=== PATIENT | female | born 1940 | race Caucasian/White ===

== ENCOUNTER 2018-02-17 17:41 | Observation (INO) | payer MEDICARE ==
--- NOTE | 2018-02-17 18:18 | RAD ---
CHEST ONE VIEW 02/17/18 HISTORY: Chest pain. COMPARISON: None. FINDINGS: Exam is limited due to leftward patient rotation. Left peripheral air space opacity as well as small left effusion. No acute osseous abnormality. Mild S-shaped scoliosis of the thoracolumbar spine. Right upper quadrant surgical clips. IMPRESSION: Limited due to leftward rotation although there is appearance of a small left effusion as well as a l eft peripheral air space opacity. POS: [facility]
[2018-02-17 18:23] LABS: #Eosinphils 0.1 thou/uL (0.0-0.7); #Lymphocytes 1.5 thou/uL (1.20-3.40); #Monocytes 0.4 thou/uL (0.11-0.59); #Neutrophils 7.1 thou/uL (1.40-6.50); %Basophils 0.4 % (0.0-1.0); %Eosinophils 0.6 % (0.0-10.0); %Lymphocytes 16.8 % (21.0-51.0); %Monocytes 4.1 % (0.0-10.0); Hemoglobin 13.7 g/dL (12.0-16.0); Mean Corpuscular HGB CONC 33.3 g/dL (32.0-36.0); Mean Corpuscular Hemoglobin 30.9 pg (27.0-31.0); Mean Corpuscular Volume 92.9 fl (81.0-99.0); Mean Platelet Volume 7.7 fL (7.4-10.4); Platelet Count 272 thou/uL (130-400); RBC Distribution Width 13.8 % (11.5-14.5); Red Blood Cell (RBC) Count 4.43 mill/uL (4.20-5.40); White Blood Cell (WBC) Count 9.2 thou/uL (4.8-10.8)
[2018-02-17 18:43] LABS: ALT (SGPT) 18 U/L (8-55); AST (SGOT) 17 U/L (5-34); Albumin 4.2 g/dL (3.4-4.8); Alkaline Phosphatase 60 U/L (40-150); Anion Gap 15 mmol/L (10-20); BUN (Urea Nitrogen) 13 mg/dL (9.8-20.1); Bilirubin, Total 0.4 mg/dL (0.2-1.2); CK (CPK) 31 U/L (29-168); Calc. Creatinine Clearance 0 mL/min (70-130); Calcium 9.6 mg/dL (7.8-10.44); Carbon Dioxide 21 mmol/L (23-31); Chloride 107 mmol/L (98-107); Estimated GFR-MDRD 71; Globulin 2.9 g/dL (2.4-3.5); Glucose 146 mg/dL (83-110); Lipase 27 U/L (8-78); Potassium 4.4 mmol/L (3.5-5.1); Protein, Total 7.1 g/dL (6.0-8.3); Sodium 139 mmol/L (136-145)
[2018-02-17 18:46] LABS: CKMB 0.6 ng/mL (0-6.6); Troponin I Less than 0.010 ng/mL (< 0.028)
[2018-02-17 21:55] LABS: Troponin I 0.018 ng/mL (< 0.028)
[2018-02-17] MEDS ORDERED: Ondansetron ODT 4 MG TAB SL PRN (22:49)
[2018-02-17] MEDS ORDERED: Ondansetron HCl/PF 4 MG/2 ML Vial IVP PRN (22:49)
[2018-02-17] MEDS ORDERED: Acetaminophen 325 MG TAB PO PRN (22:49)
[2018-02-17 22:54] VITALS: BMI 23.8
[2018-02-18 01:12] LABS: Troponin I 0.015 ng/mL (< 0.028)
[2018-02-18] MEDS ORDERED: NIFEdipine XL 30 MG TAB PO PRN (01:55)
[2018-02-18] MEDS ORDERED: Furosemide 40 MG TAB PO PRN (01:55)
[2018-02-18 05:36] LABS: Cardiac Risk 5.1 (Less than 4.5)
[2018-02-18 08:23] VITALS: TEMP 98
[2018-02-18] MEDS ORDERED: NIFEdipine XL 30 MG TAB PO SCH (09:00)
[2018-02-18] MEDS ORDERED: FLUoxetine HCl 20 MG CAP PO SCH (09:00)
[2018-02-18] MEDS ORDERED: Apixaban 5 MG TAB PO SCH (09:00)
[2018-02-18] MEDS ORDERED: Lisinopril 20 MG TAB PO SCH (09:00)
[2018-02-18 12:23] VITALS: BP 117/58
--- NOTE | 2018-02-18 13:08 | DIS ---
DATE OF ADMISSION: 02/17/2018 DATE OF DISCHARGE: 02/18/2018 ADMITTING DIAGNOSIS: Acute chest pain. DISCHARGE DIAGNOSIS: Acute chest pain. SECONDARY DIAGNOSES: 1. Hypertension. 2. Hyperlipidemia. 3. Gastroesophageal reflux disease. 4. Depression. 5. Atrial fibrillation. HISTORY OF PRESENT ILLNESS AND HOSPITAL COURSE: In brief, this is a 77-year-old white female who pre sented to the ED with a chest pain, brought by her . The patient reports pain on and off for the past couple of days and is in the center of the chest. She mentions she takes multiple medicatio ns and she believes it is because of the GERD or esophagitis. The patient has a history of atrial fi brillation and she is on blood thinner and Eliquis. The patient had an exercise treadmill stress clif t, echo read by Dr. Crowley, which was unremarkable. Her sternum could be unremarkable. Patient wa s discharged back home in stable condition. PHYSICAL EXAMINATION: On date of discharge: VITAL SIGNS: Blood pressures are 130/58, heart rate is 71, respiratory rate is 16, and saturation 93 %, GENERAL: The patient is moderately built and moderately nourished, does not appear to be in acute di stress. CARDIOVASCULAR: S1, S2 normal. No murmurs, rubs, or gallops. LUNGS: Bilateral air entry was equal. No wheezing, no crackles. ABDOMEN: Soft, nontender, no guarding, no rebound tenderness. Bowel sounds are normal. MUSCULOSKELETAL: No calf tenderness. No pedal edema. EXTREMITIES: No joint tenderness, no joint swelling. SKIN: No cyanosis, no erythema, no rash, no pallor. DISCHARGE MEDICATIONS: 1. Eliquis 5 mg p.o. b.i.d. 2. Fluoxetine 40 mg p.o. daily. 3. Lasix 40 mg p.o. daily. 4. Lisinopril 20 mg p.o. daily. 5. Metoprolol 12.5 mg p.o. daily. 6. Nifedipine 30 mg p.o. daily. 7. Pantoprazole 40 mg p.o. daily. 8. Prednisone 10 mg p.o. every 2 days. DISCHARGE INSTRUCTIONS: Continue activity as tolerated. Advised to follow up with primary care phys ician in 1 to 2 weeks. Advised to take the pills with a lot of water to avoid pill esophagitis and c ontinue cardiac diet. I spent 30 minutes with this patient.
--- NOTE | 2018-02-18 15:25 | CON ---
DATE OF CONSULTATION: 02/18/2018 HISTORY OF PRESENT ILLNESS: The patient is a 77-year-old woman who presents for evaluation of persis tent chest discomfort. The patient has a history of hypertension and atrial fibrillation. The patie nt most recently had a reaction to an antibiotic and subsequently been feeling poorly. She also was diagnosed at that time with paroxysmal atrial fibrillation, has been on Eliquis. The patient has had difficult to control hypertension. She was recently started on nifedipine. The patient reports leif t she developed acute onset of midsternal chest discomfort that radiated to her back. This began 2 d ays ago. This pain was persistent for nearly 2 days. She saw her primary physician who recommended she come to the emergency room. The patient's chest pain has subsequently resolved. PAST MEDICAL HISTORY: Significant for: 1. Hypertension. 2. Atrial fibrillation. 3. She has GE reflux. 4. Irritable bowel syndrome. 5. She also has depression. PAST SURGICAL HISTORY: She had a cholecystectomy, hysterectomy. SOCIAL HISTORY: She is a nonsmoker. FAMILY HISTORY: ALLERGIES: She is allergic to SULFA DRUGS, CODEINE, PENICILLIN. PHYSICAL EXAMINATION: GENERAL: This is an elderly woman in no acute distress with a blood pressure of 146/82. NECK: No jugular venous distention. LUNGS: Clear to auscultation. HEART: Regular rate and rhythm, normal S1, S2, no murmurs. ABDOMEN: Nondistended. EXTREMITIES: Showed no edema. LABORATORY: Sodium 139, potassium 4.4, chloride 103, bicarbonate 21, BUN 13, creatinine is 0.79, tro ponin less than 0.01. Her white blood cell count was 9.2, hemoglobin 13.0, hematocrit 41.1, her plat elets are 272. Her troponin was 0.015. Her EKG revealed normal sinus rhythm with moderate voltage c riteria for left ventricular hypertrophy. IMPRESSION: 1. Chest pain, atypical. 2. Hypertension. 3. Paroxysmal atrial fibrillation. 4. Depression. This patient presents with persistent pain for nearly 2 days. Cardiac enzymes were unremarkable. EK G showed no acute changes. The patient will undergo an exercise treadmill test today. We will follo w this patient with you through her hospitalization.
[2018-02-19] MEDS ORDERED: predniSONE 5 MG TAB PO SCH (09:00)
--- NOTE | 2018-02-20 14:47 | EKG ---
Test Reason : Blood Pressure : / mmHG Vent. Rate : 067 BPM Atrial Rate : 067 BPM P-R Int : 138 ms QRS Dur : 072 ms QT Int : 404 ms P-R-T Axes : 020 052 069 degrees QTc Int : 426 ms Normal sinus rhythm Moderate voltage criteria for LVH, may be normal variant Nonspecific ST abnormality Abnormal ECG Peaked T waves No ST elevation/FL Confirmed by YULIYA Sotelo, VIRAL ([id number]), proposal editor NISHANT JACKSON ([id number]) on 02/20/2018 2:46:40 PM Referred By: Confirmed By:VIRAL DWYER M.D.
== END 2018-02-18 12:53 | disposition home or self-care (01) ==
LOC: ERS 17:41 → 2SW 21:20
PROVIDERS: ADMIT Internal Medicine; ATTEND Internal Medicine
DX: R07.89 Other chest pain (principal); I10 Essential (primary) hypertension; I48.0 Paroxysmal atrial fibrillation; F32.9 Major depressive disorder, single episode, unspecified; K21.9 Gastro-esophageal reflux disease without esophagitis; K58.9 Irritable bowel syndrome, unspecified; E78.00 Pure hypercholesterolemia, unspecified; Z79.01 Long term (current) use of anticoagulants; Z79.52 Long term (current) use of systemic steroids; Z79.899 Other long term (current) drug therapy; Z88.0 Allergy status to penicillin; Z88.2 Allergy status to sulfonamides; Z88.5 Allergy status to narcotic agent; Z88.1 Allergy status to other antibiotic agents; Z91.018 Allergy to other foods
CPT/HCPCS: 71045; 80053; 80061; 82550; 82553; 83690; 84484 ×3; 85025; 93005; 93017; 94760; 96360; 99285; G0378; 36415